=== PATIENT | female | born 1995 | race Caucasian/White ===

== ENCOUNTER 2016-10-26 23:47 | Emergency (ER) | payer OTHER ==
[~2016-10-26] VITALS: Ht 167.6 cm; Wt 69.0 kg
[~2016-10-26 23:47] MED LIST: BACTDS PO; IBUP800T25 PO
[2016-10-26 23:49] VITALS: Ht 167.6 cm; Wt 69.0 kg
--- NOTE | 2016-10-27 01:13 | ERA ---
ER Documentation Chief Complaint Date/Time DATE: 10/27/16 TIME: 01:10 Chief Complaint LLQ abd pain x 2 days HPI This is an otherwise healthy 21-year-old female presents with her boyfriend with a chief complaint of dull left lower quadrant abdominal pain 1 day. States that the pain has been worse around 1 PM today. Patient is not on any medications. Last menstrual period September 15. Patient denies fever, nausea, vomiting, diarrhea, constipation, vaginal discharge, bleeding, hematuria, dysuria, or foul odor. Patient describes no other social manifestations and has no other complaints at this time. Vaccination status is up-to-date. Is sexually active. ROS All systems reviewed and are negative except as per history of present illness. Medications Home Meds Active Scripts Sulfamethoxazole-Trimethoprim* (Bactrim* DS) 800-160 Mg Tab, 1 TAB PO BID, #28 TAB Prov:THOMAS TERRY DO 10/28/15 Ibuprofen* (Motrin*) 800 Mg Tab, 800 MG PO Q6H Y for PAIN AND OR ELEVATED TEMP, #30 TAB Prov:THOMAS TERRY DO 10/28/15 Allergies Allergies: Coded Allergies: No Known Allergy (Unverified , 10/28/15) PMhx/Soc Medical and Surgical Hx: pt denies Medical Hx, pt denies Surgical Hx History of Surgery: No (DENIES MEDICAL AND SURGICAL HX.) Hx Alcohol Use: No Hx Substance Use: No Hx Tobacco Use: No Smoking Status: Never smoker Physical Exam Vitals Vital Signs Date Time Temp Pulse Resp B/P Pulse Ox O2 Delivery O2 Flow Rate FiO2 10/26/16 23:49 98.3 67 20 109/56 98 Physical Exam Physical Const: Healthy-appearing. Well-nourished. Well-developed. No acute distress. Abd: Mild left lower quadrant tenderness. No pelvic tenderness. Soft, non distended. No guarding, masses. Normal bowel sounds. No McBurney's point tenderness. Head: Normocephalic, Atraumatic. No sinus tenderness. Eyes: Non-injected; No scleral erythema, discharge or foreign body. EOMI and MARCELA bilaterally. Ears: Normal External Ears, EACs clear, TM normal bilaterally without erythema. Nose: Normal nose without discharge, septal deviation, or sinus tenderness. Oral: No oral edema visualized. Mucous membranes moist and pink. Neck: No cervical lymphadenopathy, masses or goiter palpated. Full range of motion. Supple. Trachea midline. ~ No meningismus. Pulm: Good air movement in upper and lower respiratory tracts. No dyspnea, stridor, tripoding or drooling. Clear to auscultation bilaterally. Percussion unremarkable in all lung silverman bilaterally. Cardio: Regular rate and rhythm; No murmurs, gallops or rubs auscultated. No JVD grossly observed. Radial and posterior tibial pulses 2+ bilaterally. No cyanosis. Capillary refill less than 2 seconds. MS: Normal motor strength, normal tone with gross examination. Skin: No petechiae or rashes. No ulcer, induration, jaundice. Good turgor. Back: No midline, flank or CVA tenderness. Ext: No cyanosis, edema or palpable cord. Normal movement of all extremities grossly observed. Neur: Awake, alert and oriented x3. Neurovascularly intact bilaterally. Psych: Active and alert. Normal Mood and Affect. Oriented x3. Procedures/MDM Patient was evaluated and worked up for left lower quadrant abdominal discomfort as described in history and physical examination. Patient has been remitting and at this time I very little suspicion for ovarian torsion. Last menstrual period was September 15. Patient is not on any medications. Urinalysis, test was ordered. Patient refused pain medications at this time. Patient eloped. Departure Diagnosis: Primary Impression: Abdominal pain Qualified Code: R10.9 - Abdominal pain, unspecified location Condition: Stable Additional Instructions: Follow up with your PCP within the next 1-3 days for a more thorough evaluation and a possible referral to a specialist. Return the the emergency department immediately if symptoms worsen or change. If you have any questions regarding medications, ask your pharmacist or us before you leave. If any adverse reactions occur while taking your medications, discontinue the treatment and return to the emergency department immediately. Take your medications as directed, and complete the entire course of treatment. ARNOLD KENNEY PA-C Oct 27, 2016 01:13 medications, ask your pharmacist or us before you leave. If any adverse reactions occur while taking your medications, discontinue the treatment and return to the emergency department immediately. Take your medications as directed, and complete the entire course of treatment. ARNOLD KENNEY PA-C Oct 27, 2016 01:13
[2016-11-10] MEDS ORDERED: AMO500 PO (13:09)
== END 2016-10-27 02:33 | disposition home or self-care (01) ==
LOC: FTE 23:47
DX: R10.32 Left lower quadrant pain (principal)
CPT/HCPCS: 99283

== ENCOUNTER 2016-11-10 12:54 | Emergency (ER) | END 2016-11-10 13:22 | disposition home or self-care (01) | DX: J02.9 Acute pharyngitis, unspecified (principal) ==

== ENCOUNTER 2017-01-12 04:34 | Emergency (ER) | payer OTHER ==
[~2017-01-12] VITALS: Ht 162.6 cm; Wt 65.1 kg
[~2017-01-12 04:34] MED LIST changes: +AMO500 PO
[2017-01-12 04:41] VITALS: Ht 162.6 cm; Wt 65.1 kg
[2017-01-12] MEDS ORDERED: IBUP-1542 PO (05:17)
[2017-01-12] MEDS ORDERED: SULF1TAB31 PO (05:17)
[2017-01-12] MEDS ORDERED: HYDR-906 PO (05:17)
[2017-01-12] MEDS ORDERED: CEPH-443 PO (05:17)
--- NOTE | 2017-01-12 05:22 | ERD ---
ER Documentation Chief Complaint Date/Time DATE: 01/12/17 TIME: 05:19 Chief Complaint Right Bartholin cyst pain and swelling for 5 months HPI 21-year-old female presents here in emergency department for complaints of right Bartholin's cyst pain and swelling for 5 months, patient describes the pain on affected areas throbbing pain, 8/10 scale, as was upon touching the area. Tonight, he got worse, he could not sleep because of this. Patient denies any fever or chills. Patient did not take any medications for pain. ROS All systems reviewed and are negative except as per history of present illness. Medications Home Meds Active Scripts Cephalexin* (Keflex*) 500 Mg Capsule, 500 MG PO QID for 10 Days, CAP Prov:SHELLEY HULL NP 01/12/17 Sulfamethoxazole/Trimethoprim* (Bactrim Ds* Tablet) 1 Each Tablet, 1 TAB PO BID , #20 TAB Prov:SHELLEY HULL NP 01/12/17 Ibuprofen* (Motrin*) 600 Mg Tab, 600 MG PO Q6H Y for PAIN AND OR ELEVATED TEMP, #30 TAB Prov:SHELLEY HULL NP 01/12/17 Hydrocodone/Acetaminophen ([place] 5-325 Tablet) 1 Each Tablet, 1 TAB PO Q6H Y for SEVERE PAIN LEVEL 7-10, #20 TAB Prov:SHELLEY HULL POLISHER NUMERAL 01/12/17 Amoxicillin* (Amoxicillin*) 500 Mg Cap, 500 MG PO BID for 7 Days, CAP Prov:KATHLEEN LUNA PA-C 11/10/16 Sulfamethoxazole-Trimethoprim* (Bactrim* DS) 800-160 Mg Tab, 1 TAB PO BID, #28 TAB Prov:THOMAS TERRY DO 10/28/15 Ibuprofen* (Motrin*) 800 Mg Tab, 800 MG PO Q6H Y for PAIN AND OR ELEVATED TEMP, #30 TAB Prov:THOMAS TERRY DO 10/28/15 Allergies Allergies: Coded Allergies: No Known Allergy (Unverified , 01/12/17) PMhx/Soc Medical and Surgical Hx: pt denies Medical Hx, pt denies Surgical Hx History of Surgery: No (DENIES MEDICAL AND SURGICAL HX.) Hx Alcohol Use: No Hx Substance Use: No Hx Tobacco Use: No Smoking Status: Never smoker FmHx Family History: No coronary disease, No diabetes, No other Physical Exam Vitals Vital Signs Date Time Temp Pulse Resp B/P Pulse Ox O2 Delivery O2 Flow Rate FiO2 01/12/17 04:41 96.9 82 20 119/70 98 Physical Exam GENERAL: The patient is well developed and appropriate for usual state of health, in no apparent distress. CHEST: Clear to auscultation bilaterally. There are no rales, wheezes or rhonchi. HEART: Regular rate and rhythm. No murmurs, clicks, rubs or gallops. No S3 or S4. ABDOMEN: Soft, nontender and nondistended. Good bowel sounds. No rebound or guarding. No gross peritonitis. No gross organomegaly or masses. No Hayward sign or McBurney point tenderness. BACK: No midline or flank tenderness. EXTREMITIES: Equal pulses bilaterally. There is no peripheral clubbing, cyanosis or edema. No focal swelling or erythema. Full range of motion. Grossly neurovascularly intact. NEURO: Alert and oriented. Cranial nerves 2-12 intact. Motor strength in all 4 extremities with 5/5 strength. Sensation grossly intact. Normal speech and gait. SKIN: There is no apparent rash or petechia. The skin is warm and dry. HEMATOLOGIC AND LYMPHATIC: There is no evidence of excessive bruising or lymphedema. No gross cervical, axillary, or inguinal lymphadenopathy. : Noted right Bartholin's cyst abscess, fluctuant, tender on palpation. No other lesions noted. Procedures/MDM Procedure Note: After obtaining informed consent, the wound was irrigated with 250 ml of normal saline and cleaned with diluted betadine. Using aseptic technique, 3 ml of 1% lidocaine was injected on the subcutaneous tissue of the abscess where the fluctuant area is at. After the anesthetic, a 2 cm incision was done in the middle of the fluctuant area of the abscess. Pustular discharge was drained from the abscess. The abscess wound was loosely packed with iodoform dressing. After the procedure, dry dressing was applied on the area. Patient tolerated procedure well. Medical Decision making: Patient symptoms most likely is consistent with Bartholin's cyst abscess. This was drained, iodoform dressing was applied in affected area for further drainage. No symptoms of sepsis at this time, patient appears well and hemodynamically stable. Prescription was given for Bactrim, Keflex, ibuprofen, [place] and ibuprofen, is advised to follow-up with primary care doctor/OB doctor, or here in the emergency department in 2 days for wound check and dressing change. Patient was advised to return to emergency department for any worsening symptoms. Disposition: Home. Stable. Departure Diagnosis: Primary Impression: Abscess of Bartholin's gland Condition: Stable Patient Instructions: Bartholin's Cyst (I And D) SHELLEY HULL NP Jan 12, 2017 05:22
== END 2017-01-12 05:35 | disposition home or self-care (01) ==
LOC: FTE 04:34
DX: N75.1 Abscess of Bartholin's gland (principal)
CPT/HCPCS: 56420; Z7502; Z7610

== ENCOUNTER 2017-09-27 19:41 | Emergency (ER) | END 2017-09-27 20:07 | disposition home or self-care (01) ==

== ENCOUNTER 2018-10-10 10:17 | Emergency (ER) | payer OTHER ==
[~2018-10-10] VITALS: Ht 162.6 cm; Wt 90.3 kg
[~2018-10-10 10:17] MED LIST changes: -AMO500 PO; +AMOX500C2 PO; +BEN50 PO; +CEPH-443 PO; +HYDR-4011 PO; +IBUP-1542 PO; -IBUP800T25 PO; +IBUP800T48 PO; +PRED20TA PO; +SULF1TAB31 PO
[2018-10-10 10:40] VITALS: BP 120/70; PULSE 95; RESP 18; Ht 162.6 cm; Wt 90.3 kg
[2018-10-10] MEDS ORDERED: IBUPROFEN 200 MG TAB PO ONE (11:30)
[2018-10-10] MEDS ORDERED: CEPH-443 PO (11:41)
--- NOTE | 2018-10-10 11:42 | ERD ---
ER Documentation Chief Complaint Chief Complaint lower back pain, denies injury or painful urination HPI 23-year-old female presenting with lower nonradiating back pain x1 day 8 out of 10. Patient denies dysuria, frequency, presence of blood. Patient states she is taking Advil at home and it has not helped but she has felt feverish and chills. Patient denies any surgical history and states she is currently only taking contraceptive medication. She is up-to-date on all of her vaccinations. ROS All systems reviewed and are negative except as per history of present illness. Medications Home Meds Active Scripts Cephalexin* (Keflex*) 500 Mg Capsule, 500 MG PO BID for 5 Days, CAP Prov:HARSHIL HOSKINS PA-C 10/10/18 Prednisone* (Prednisone*) 20 Mg Tab, 60 MG PO DAILY for 5 Days, TAB Prov:SHELLEY HULL NP 09/27/17 Diphenhydramine Hcl* (Benadryl*) 50 Mg Cap, 50 MG PO Q6H PRN for ITCHING/RASH, #30 CAP Prov:SHELLEY HULL NP 09/27/17 Cephalexin* (Keflex*) 500 Mg Capsule, 500 MG PO QID for 10 Days, CAP Prov:SHELLEY HULL NP 01/12/17 Sulfamethoxazole/Trimethoprim* (Bactrim Ds* Tablet) 1 Each Tablet, 1 TAB PO BID, #20 TAB Prov:SHELLEY HULL NP 01/12/17 Ibuprofen* (Motrin*) 600 Mg Tab, 600 MG PO Q6H PRN for PAIN AND OR ELEVATED TEMP, #30 TAB Prov:SHELLEY HULL NP 01/12/17 Hydrocodone/Acetaminophen ([place] 5-325 Tablet) 1 Each Tablet, 1 TAB PO Q6H PRN for SEVERE PAIN LEVEL 7-10, #20 TAB Prov:SHELLEY HULL NP 01/12/17 Amoxicillin* (Amoxicillin*) 500 Mg Cap, 500 MG PO BID for 7 Days, CAP Prov:KATHLEEN LUNA PA-C 11/10/16 Sulfamethoxazole-Trimethoprim* (Bactrim* DS) 800-160 Mg Tab, 1 TAB PO BID, #28 TAB Prov:THOMAS TERRY DO 10/28/15 Ibuprofen* (Motrin*) 800 Mg Tab, 800 MG PO Q6H PRN for PAIN AND OR ELEVATED TEMP, #30 TAB Prov:THOMAS TERRY DO 10/28/15 Allergies Allergies: Coded Allergies: acetaminophen (Verified Allergy, Intermediate, rash, 09/27/17) since 09/27/17 codeine (Verified Allergy, Intermediate, rash, 09/27/17) since 09/27/17 PMhx/Soc Medical and Surgical Hx: pt denies Medical Hx History of Surgery: No (DENIES MEDICAL AND SURGICAL HX.) Hx Alcohol Use: No Hx Substance Use: No Hx Tobacco Use: No FmHx Family History: No diabetes, No coronary disease, No other Physical Exam Vitals Vital Signs Date Temp Pulse Resp B/P (MAP) Pulse Ox O2 O2 Flow FiO2 Time Delivery Rate 10/10/18 38.1 11:26 10/10/18 100.6 95 18 120/70 97 10:40 (87) Physical Exam GENERAL: The patient is well-appearing, well-nourished, in no acute distress HEENT: Atraumatic. Conjunctivae are pink. Pupils equal, round, and reactive to light. There is no scleral icterus. Tympanic membranes clear bilaterally. Oropharynx clear. No nystagmus or photophobia. NECK: C-spine is soft and supple. There is no meningismus. There is no cervical lymphadenopathy. CHEST: Clear to auscultation bilaterally. There are no rales, wheezes or rhonchi. HEART: Regular rate and rhythm. No murmurs, clicks, rubs or gallops. ABDOMEN:Soft, nontender and nondistended. Good bowel sounds. No rebound or guarding. No gross peritonitis. No gross organomegaly or masses. No Hayward si gn or McBurney point tenderness. BACK: No midline or flank tenderness. Results 24 hrs Laboratory Tests Test 10/10/18 11:25 10/10/18 11:27 Bedside Urine pH (LAB) 6.0 Bedside Urine Protein (LAB) Negative Bedside Urine Glucose (UA) Negative Bedside Urine Ketones (LAB) Negative Bedside Urine Blood 1+ Bedside Urine Nitrite (LAB) Positive Bedside Urine Leukocyte Esterase (L Negative POC Beta HCG, Qualitative NEGATIVE Current Medications Medications Dose Sig/Shankar Start Time Status Last (Trade) Ordered Route PRN Stop Time Admin Dose Reason Admin Ibuprofen 400 mg ONCE ONCE 10/10/18 DC 10/10/18 (Motrin) PO 11:30 11:26 10/10/18 11:31 Procedures/MDM ED course: Motrin Urine dip Urine The patient was stable throughout the ED course. The patient and/or family informed of laboratory and diagnostic imaging results throughout the ED course. Medications given in ER: Motrin Patient tolerated medication well with no adverse reactions. Patient reported improvement in pain. Medical decision makin-year-old female presenting with lower back pain. Patient's physical exam was unremarkable. Urine dip indicated patient had UTI. Patient's test was negative. At this time I have low suspicion for cauda equine syndrome, spinal fractures, epidural abscess, spinal metastases, osteomyelitis, aortic dissection, ruptured or leaking AA, DJD, sciatica, lumbar strain, muscle spasm, pyelonephritis or nephrolithiasis. Patient is being discharged with a prescription for Keflex. Patient was advised if symptoms worsen return to ER. She was advised to follow-up with her primary care provider within 1 to 2 days regarding today's visit. Patient had no further questions upon discharge and is in agreement to the treatment plan. Prescription for home: Keflex Discharge: At this time, patient is stable for discharge and outpatient management. I have instructed the patient to follow-up with his\her primary care physician in 1 to 2 days. I have discussed with the patient the possibility of needing to see a specialist for further work-up and imaging studies if symptoms persist. I have instructed the patient to promptly return to the ER for any new or worsening symptoms including increased pain, fever, nausea, vomiting, weakness or LOC. The patient and\or family expressed understanding of and agreement with this plan. All questions were answered. Home care instructions were provided. Disclaimer: Inadvertent spelling and grammatical errors are likely due to EHR\dictation software use and do not reflect on the overall quality of patient care. Also, please note that the electronic time recorded on the note does not necessarily reflect the actual time of the patient encounter. Departure Diagnosis: Primary Impression: UTI (urinary tract infection) Urinary tract infection type: site unspecified Hematuria presence: without hematuria Qualified Codes: N39.0 - Urinary tract infection, site not specified Condition: Good Patient Instructions: Understanding Urinary Tract Infections (UTIs) Referrals: [facility] [place] PA-C Oct 10, 2018 11:42
== END 2018-10-10 12:15 | disposition home or self-care (01) ==
LOC: FTE 10:17
DX: N39.0 Urinary tract infection, site not specified (principal)
CPT/HCPCS: 81003; 81025; Z7502; Z7610; 99282